=== PATIENT | female | born 1995 | race Two or more races ===

== ENCOUNTER 2020-04-30 00:36 | Emergency (ER) | payer OTHER ==
[~2020-04-30] VITALS: Ht 170.2 cm; Wt 102.0 kg
[2020-04-30 00:46] VITALS: BP 127/68
[2020-04-30] MEDS ORDERED: ONDANSETRON ODT 4 MG ONE (01:20)
[2020-04-30] MEDS ORDERED: ONDANSETRON ODT 4 MG PO ONE (01:30)
== END 2020-04-30 04:38 | disposition home or self-care (01) ==
LOC: ED 01:06
DX: F10.120 Alcohol abuse with intoxication, uncomplicated (principal); F41.9 Anxiety disorder, unspecified; F12.10 Cannabis abuse, uncomplicated; R00.0 Tachycardia, unspecified
CPT/HCPCS: 93005; 99283; Q0162